=== PATIENT | male | born 1995 | race Caucasian/White ===

== ENCOUNTER 2016-03-30 15:41 | Emergency (ER) | payer OTHER ==
[~2016-03-30] VITALS: Ht 172.7 cm; Wt 56.8 kg
[~2016-03-30 15:41] MED LIST: CETI10 PO; FLON0.053; GUAI100S6 PO; IBUP400T20 PO
[2016-03-30 15:47] VITALS: BP 158/94; PULSE 72; RESP 15; TEMP 98.2; O2SAT 99
--- NOTE | 2016-03-30 17:12 | PD ---
HPI Chief Complaint: Injury Time Seen by Provider: 17:12 Travel History International Travel<30 days: No Contact w/Intl Traveler<30days: No Traveled to known affect area: No History of Present Illness HPI 20-year-old male presents to the emergency department with continued complaint of left shoulder pain. He has recurrent dislocations of his left shoulder and he is unable to follow with orthopedics. He is here requesting a referral to orthopedics because he cannot get into a primary care provider to get a referral. He is unable to follow-up with orthopedic stable except without referral. He has had continued left shoulder pain. He last dislocated on March 20. He is wearing an arm sling for support. He says his shoulder spasms and causes severe pain. He has been taking Tylenol and ibuprofen with no relief of pain. Says he has intermittent numbness and tingling in his hand, but denies now. Denies loss of sensation. Reports decreased range of motion secondary to pain. Pain is worse with movement and palpation. He also states he has some lumps in his left armpit that are painful. Denies fever, chills, nausea, vomiting. Allergies to cat dander, cultivated oat pollen. Cannot find primary care provider. Denies other significant past medical history. No other modifying factors or associated signs and symptoms. PFSH Past Medical History ADHD: Yes Diminished Hearing: No Immunizations Current: Yes Past Surgical History Other Surgery: Yes (BENIGN TUMORS REMOVED FROM LOWER BACK) Social History Alcohol Use: Yes (OCC) Tobacco Use: Yes (OCC) Substance Use: Yes (occasional marijuana use) Allergies-Medications (Allergen,Severity, Reaction): Coded Allergies: Cultivated Oat Pollen (Verified Allergy, Severe, ITCHY EYES, SNEEZING, 03/30) Cat Dander (Verified Allergy, Intermediate, ITCHY EYES, SNEEZING, SCRATCHY THROAT, 03/30/16) Reported Meds & Prescriptions Reported Meds & Active Scripts Active Keflex (Cephalexin) 500 Mg Cap 500 Mg PO Q6H 10 Days Flexeril (Cyclobenzaprine HCl) 10 Mg Tab 10 Mg PO TID PRN Lortab (Hydrocodone-Acetaminophen) 5-325 Mg Tab 1 Tab PO Q6H PRN Ibuprofen 400 Mg Tab 400 Mg PO Q8H PRN Review of Systems Except as stated in HPI: all other systems reviewed are Neg Physical Exam Narrative GENERAL: Well-nourished, well-developed patient, in no acute distress; afebrile , nontoxic-appearing SKIN: Warm and dry. 4 small pinpoint erythemic bumps that are tender to palpation to the left axilla; without pointing, drainage; without lymphadenopathy; consistent with folliculitis. HEAD: Atraumatic. Normocephalic. EYES: Pupils equal and round. No scleral icterus. No injection or drainage. ENT: Mucosa pink and moist. Airway patent. NECK: Supple. Trachea midline. CARDIOVASCULAR: Regular rate and rhythm. RESPIRATORY: No accessory muscle use. GASTROINTESTINAL: Flat. 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 No obvious deformities. No clubbing. No cyanosis. No edema. NEUROLOGICAL: Awake and alert. Oriented 3. No obvious cranial nerve deficits. Motor grossly within normal limits. Normal speech. PSYCHIATRIC: Appropriate mood and affect; insight and judgment normal. Data Data Last Documented VS Vital Signs Date Time Temp Pulse Resp B/P Pulse Ox O2 Delivery O2 Flow Rate FiO2 03/30/16 15:47 98.2 72 15 158/94 99 Orders Orphenadrine Inj (Norflex Inj) (03/30/16 17:15) Ketorolac Inj (Toradol Inj) (03/30/16 17:15) MDM Medical Decision Making Medical Screen Exam Complete: Yes Emergency Medical Condition: Yes Medical Record Reviewed: Yes Differential Diagnosis Left shoulder strain, left shoulder pain, folliculitis Narrative Course 20-year-old male comes in requesting a referral to orthopedics because he cannot find a primary care provider to provide him with referral. He has recurrent dislocations of his left shoulder. He was last seen here on March 20. He also has folliculitis to the left armpit. The patient has severe tenderness to the left shoulder. Shoulders are equal. Joint is stable. I do not suspect dislocation, joint separation, fracture. Left upper extremity is supple and non-tense with 2+ radial pulses and sensory intact. Has arm sling for support. Toradol and Norflex administered in the ER. Keflex, Lortab and Flexeril prescribed for home. Instructed patient to follow-up with orthopedic outpatient. Patient is medically cleared and stable for discharge. Discussed reasons to return to the emergency department. Instructed patient to follow up with primary care provider. Patient agrees with treatment plan. The patients vital signs are stable and the patient is stable for outpatient follow-up and treatment. Patient discharged home, stable and in no acute distress. Diagnosis Primary Impression: Left shoulder pain Qualified Code: M25.512 - Left shoulder pain, unspecified chronicity Additional Impressions: Recurrent dislocation, left shoulder Folliculitis Referrals: Orthopedist Primary Care Physician Patient Instructions: Folliculitis (ED), General Instructions, Shoulder Dislocation (ED) Additional Instructions: Tylenol or ibuprofen as needed and as directed to reduce pain and inflammation Rest, ice, and compress extremity to decrease pain and inflammation Arm sling for support Avoid aggravating activity; increase activity as tolerated Follow-up with primary care provider Follow-up with orthopedics Return to the emergency department immediately with worsening symptoms Med/Other Pt SpecificInfo: Prescription(s) given Scripts Cephalexin (Keflex)500 Mg [id number] Mg PO Q6H 10 Days Ref 0 Prov:Isabel Buchanan 03/30/16 Cyclobenzaprine (Flexeril)10 Mg Tab10 Mg PO TID PRN (MUSCLE SPASM) #30 TAB Ref 0 Prov:Isabel Buchanan 03/30/16 Hydrocodone-Acetaminophen (Lortab)5-325 Mg Tab1 Tab PO Q6H PRN (PAIN) #15 TAB Ref 0 Prov:Yonny Fajardo MD 03/30/16 Disposition: 01 DISCHARGE HOME Condition: Stable Isabel Buchanan Mar 30, 2016 17:12
[2016-03-30] MEDS ORDERED: HYDR-3533 PO (17:14)
[2016-03-30] MEDS ORDERED: ORPHENADRINE INJ 60 MG/2 ML AMP IM ONE (17:15)
[2016-03-30] MEDS ORDERED: KETOROLAC TROMETHAMINE 60 MG/2 ML (IM) VIAL IM ONE (17:15)
[2016-03-30] MEDS ORDERED: CYCL1TAB29 PO (17:25)
[2016-03-30] MEDS ORDERED: CEPH-460 PO (17:34)
== END 2016-03-30 17:51 | disposition home or self-care (01) ==
LOC: NEPB 15:41
DX: M25.512 Pain in left shoulder (principal); M24.412 Recurrent dislocation, left shoulder; L73.9 Follicular disorder, unspecified
CPT/HCPCS: 96372; 99283; J1885; J2360

== ENCOUNTER 2016-12-07 17:04 | Emergency (ER) | payer OTHER ==
[~2016-12-07] VITALS: Ht 172.7 cm; Wt 57.0 kg
[~2016-12-07 17:04] MED LIST changes: +CEPH-460 PO; -CETI10 PO; +CYCL1TAB29 PO; -FLON0.053; -GUAI100S6 PO; +HYDR-3533 PO
[2016-12-07 17:07] VITALS: BP 130/93; PULSE 66; RESP 20; TEMP 98.7; O2SAT 100
[2016-12-07] MEDS ORDERED: BACT800T5 PO (17:29)
[2016-12-07] MEDS ORDERED: LIDOCAINE HCL 1% 50 ML VIAL INFIL ONE (17:45)
--- NOTE | 2016-12-07 17:45 | PD ---
HPI Chief Complaint: Skin Problem Time Seen by Provider: 17:31 Travel History International Travel<30 days: No Contact w/Intl Traveler<30days: No Traveled to known affect area: No History of Present Illness HPI 21-year-old male here for evaluation of left earlobe infection. The patient reports that about a week and half ago he noticed a small pimple on his left earlobe. He squeezed it and was able to express a small amount of purulence. Since that time he has had increasing redness, swelling, and pain to the ear lobe. 2 days ago he was seen at an urgent care facility and was started on Bactrim and Keflex. Symptoms have progressively been worsening. Last night he had subjective fevers and chills. He denies IVDU. Pain is moderate to severe, worse with palpation. He does not wear earrings. PFSH Past Medical History ADHD: Yes Diminished Hearing: No Immunizations Current: Yes Past Surgical History Other Surgery: Yes (BENIGN TUMORS REMOVED FROM LOWER BACK) Social History Alcohol Use: Yes (OCC) Tobacco Use: Yes (OCC) Substance Use: Yes (occasional marijuana use) Allergies-Medications (Allergen,Severity, Reaction): Coded Allergies: grass pollen (Verified Allergy, Severe, ITCHY EYES, SNEEZING, 12/07/16) cat dander (Verified Allergy, Intermediate, ITCHY EYES, SNEEZING, SCRATCHY THROAT, 12/07/16) Reported Meds & Prescriptions Reported Meds & Active Scripts Active Keflex (Cephalexin) 500 Mg Cap 500 Mg PO Q6H 10 Days Reported Bactrim DS (Sulfamethoxazole-Trimethoprim) 800-160 Mg Tab 1 Tab PO BID Review of Systems Except as stated in HPI: all other systems reviewed are Neg Physical Exam Narrative GENERAL: Well-developed, well-nourished, comfortable, no apparent distress. SKIN: Left earlobe with moderate swelling with fluctuance and overlying warmth and erythema with significant tenderness. HEAD: Atraumatic. Normocephalic. EYES: Pupils equal and round. No scleral icterus. No injection or drainage. ENT: Mucous membranes pink and moist. Skin exam as above. Bilateral tympanic membrane and external auditory canals are normal. NECK: Trachea midline. No JVD. No nuchal rigidity. CARDIOVASCULAR: Regular rate and rhythm. No murmur appreciated. RESPIRATORY: No accessory muscle use. Clear to auscultation. Breath sounds equal bilaterally. NEUROLOGICAL: Awake and alert. No obvious cranial nerve deficits. Motor grossly within normal limits. Normal speech. PSYCHIATRIC: Appropriate mood and affect; insight and judgment normal. Data Data Last Documented VS Vital Signs Date Time Temp Pulse Resp B/P (MAP) Pulse Ox O2 Delivery O2 Flow Rate FiO2 12/07/16 17:29 18 12/07/16 17:07 98.7 66 130/93 (105) 100 Room Air Orders Orders Wound Culture And Gram Stain (12/07/16 17:37) Lidocaine 1% Inj (50 Ml) (Xylocaine 1% I (12/07/16 17:45) MDM Medical Decision Making Medical Screen Exam Complete: Yes Emergency Medical Condition: Yes Differential Diagnosis Left earlobe abscess, left earlobe cellulitis Narrative Course Incision and drainage of left earlobe abscess was performed by my nurse practitioner. See her note. Patient experience significant relief of symptoms after incision and drainage which produced a moderate amount of purulence. Wound culture sent. Patient encouraged to continue Bactrim and Keflex. PMD follow-up this week. He was informed on when to return to the emergency department. He verbalizes understanding and agreement with plan. Diagnosis Primary Impression: Abscess of left earlobe Referrals: Primary Care Physician 3 days Additional Instructions: Follow-up with your primary care physician this week. Continue taking Bactrim and Keflex as prescribed. Return to the emergency department for worsening symptoms or any other concerns. Disposition: 01 DISCHARGE HOME Condition: Stable Otilio Horne MD Dec 07, 2016 17:45
--- NOTE | 2016-12-07 18:23 | PD ---
Physical Exam Narrative I was asked by my attending physician to perform incision and drainage of abscess. Incision and drainage of left posterior earlobe abscess Area was prepped with Betadine. Small amount of 1% lidocaine used to anesthetize the area. Small incision over the area of most fluctuance made with #11 blade. Moderate amount of purulent drainage expressed. Wound cultures obtained. Patient tolerated procedure well. Data Data Last Documented VS Vital Signs Date Time Temp Pulse Resp B/P (MAP) Pulse Ox O2 Delivery O2 Flow Rate FiO2 12/07/16 17:29 18 12/07/16 17:07 98.7 66 130/93 (105) 100 Room Air Orders Orders Wound Culture And Gram Stain (12/07/16 17:37) Lidocaine 1% Inj (50 Ml) (Xylocaine 1% I (12/07/16 17:45) MDM Supervised Visit with GRADY: No Diagnosis Primary Impression: Abscess of left earlobe Disposition: DISCHARGE HOME Condition: Stable Aida Foreman Dec 07, 2016 18:23
[2016-12-07 18:24] VITALS: BP 130/93
== END 2016-12-07 18:28 | disposition home or self-care (01) ==
LOC: NEPD 17:04
DX: H66.42 Suppurative otitis media, unspecified, left ear (principal); F90.9 Attention-deficit hyperactivity disorder, unspecified type; Z72.0 Tobacco use
CPT/HCPCS: 69000; 87070; 87205